=== PATIENT | female | born 1990 | race Caucasian/White ===

== ENCOUNTER → 2018-02-25 | Outpatient (CLI) | payer OTHER, MEDICAID ==
[~2018-02-25] MED LIST: IRON325 M1 PO; MOTRIN 800800 MG/TAB PO; PERCOCET 325 MG1 TA2 PO; PRENATAL1 TA1 PO
== END ==
LOC: SUN.DIA 14:27
DX: E11.9 Type 2 diabetes mellitus without complications (principal)

== ENCOUNTER 2018-04-30 06:23 | Inpatient (IN) | payer MEDICAID ==
[2018-04-30] VITALS (29 sets, daily range): BP systolic 96–137; BP diastolic 54–88; PULSE 63–97; TEMP 97.6–98.4
[~2018-04-30] VITALS: Ht 154.9 cm; Wt 69.1 kg
[2018-04-30] MEDS ORDERED: WELLBUTRIN XL150 MG PO (07:22)
[2018-04-30 08:46] LABS: BASO % 0.2 % (0.0-2.0); EOS # 0.1 (0.0-0.7); EOS % 0.7 % (0-4.0); GRAN # 5.6 (1.4-6.5); GRAN % 69.1 % (42.2-75.2); HEMATOCRIT 33.2 % (37.0-47.0); HEMOGLOBIN 11.2 g/dl (12.5-16.0); LYMPH # 1.9 (1.2-3.4); LYMPH % 23.5 % (20.0-51.0); MEAN CELL VOLUME 95 fl (80.0-100.0); MEAN CORPUSCULAR HEMOGLOBIN 32 pg (27.0-31.0); MEAN CORPUSCULAR HGB CONC 34 g/dl (33.0-37.0); MEAN PLATELET VOLUME 10.9 fl (7.4-10.4); MONO # 0.5 (0.1-0.6); MONO % 6.1 % (1.7-9.3); PLATELET COUNT 235 K/mm3 (130-400); REDCELL DISTRIBUTION WIDTH-CV 12.7 % (11.5-14.5)
[2018-05-01 00:30] VITALS: BP 92/46; PULSE 67; TEMP 97.9
[2018-05-01 07:52] VITALS: BP 115/70; PULSE 82; TEMP 98.2
[2018-05-01] MEDS ORDERED: PERCOCET 325 MG1 TA2 PO (08:46)
[2018-05-01] MEDS ORDERED: MOTRIN 800800 MG/TAB PO (08:46)
== END 2018-05-01 14:59 | disposition home or self-care (01) | DRG 806 ==
LOC: LDR 06:23 → OB 07:05
PROVIDERS: Obstetrics & Gynecology
PROC: 10E0XZZ Delivery of Products of Conception, External Approach (ICD-10-PCS; principal; 2018-04-30)
PROC: 3E033VJ Introduction of Other Hormone into Peripheral Vein, Percutaneous Approach (ICD-10-PCS; 2018-04-30)
PROC: 10907ZC Drainage of Amniotic Fluid, Therapeutic from Products of Conception, Via Natural or Artificial Opening (ICD-10-PCS; 2018-04-30)
DX: O24.420 Gestational diabetes mellitus in childbirth, diet controlled (principal); F33.9 Major depressive disorder, recurrent, unspecified; Z37.0 Single live birth; Z3A.39 39 weeks gestation of pregnancy; O99.344 Other mental disorders complicating childbirth
CPT/HCPCS: J2590; J7120